=== PATIENT | female | born 1995 | race Caucasian/White ===

== ENCOUNTER → 2018-08-15 | Outpatient (CLI) | payer BC, OTHER ==
--- NOTE | 2018-08-15 16:33 | RADIOLOGY IMAGING REPORT ---
FACILITY: [facility] - [place] PATIENT NAME: Jessica Purvis : 1995 MR: [id number] V: [id number] EXAM DATE: ORDERING PHYSICIAN: EDU SOOD TECHNOLOGIST: Location: [facility] - [place] Patient: Jessica Purvis : 1995 Visit/Account:[id number] Date of Sevice: 08/15/2018 EXAMINATION: Transvaginal pelvic ultrasound with duplex Doppler evaluation 08/15/2018 3:20 PM HISTORY: Pelvic pain with cramps towards the left. Bleeding. History of cysts. Abnormal cycles for 6 months..; LMP: 08/13/2018 COMPARISON STUDIES: none. FINDINGS: Initially, limited transabdominal imaging was done. Uterus: 5.9 x 2.5 x 3.5 cm Myometrium: negative Endometrium: Negative. 4 mm thickness. Cervix: negative Ovaries: right ovary 2.1 x 1.1 x 2.3 cm, left ovary 2.7 x 1.4 x 2.2 cm, both normal Blood flow is documented in each ovary by Doppler ultrasound. Adnexa: negative Free pelvic fluid: none IMPRESSION: Normal pelvic ultrasound. Report Dictated By: Alexandre Pardo MD at 08/15/2018 4:25 PM Report E-Signed By: Alexandre Pardo MD at 08/15/2018 4:28 PM WSN:[email or web address]
== END ==
LOC: US 00:34
PROVIDERS: ATTEND Family Medicine
DX: R10.2 Pelvic and perineal pain (principal)
CPT/HCPCS: 76856